=== PATIENT | male | born 1945 | race Caucasian/White ===

== ENCOUNTER 2018-06-29 16:13 | Inpatient (IN) | payer MEDICARE ==
[~2018-06-29] VITALS: Ht 180.3 cm; Wt 85.4 kg
[2018-06-29 16:35] LABS: BASOPHILS % (AUTO) 0.9 % (0.0-5.0); EOSINOPHILS % (AUTO) 1.8 % (0.0-8.0); LYMPHOCYTES % (AUTO) 22.6 % (21.0-51.0); MEAN CORPUSCULAR HEMOGLOBIN 34.2 pg (27.0-33.0); MEAN CORPUSCULAR HGB CONC 34.4 g/dL (32.0-36.0); MEAN CORPUSCULAR VOLUME 99.3 fL (79-99); MONOCYTES % (AUTO) 10.7 % (3.0-13.0); PLATELET COUNT (AUTO) 157 K/uL (130-400); RED BLOOD CELL COUNT(AUTO) 3.92 MIL/uL (4.50-6.20); RED CELL DISTRIBUTION WIDTH 14.6 % (11.0-15.5); WHITE BLOOD COUNT (AUTO) 6.3 K/uL (4.8-10.8)
[2018-06-29 16:43] LABS: CREATININE 1.4 mg/dL (0.5-1.5); POTASSIUM 4.2 mmol/L (3.5-5.1)
[2018-06-29 16:44] LABS: INR 1.84 (0.85-1.15); PARTIAL THROMBOPLASTIN TIME 35.8 SEC (26.3-35.5); PROTHROMBIN TIME 19.1 SEC (9.6-11.6)
[2018-06-29 16:58] LABS: ALBUMIN 3.7 g/dL (3.5-5.0); BILIRUBIN,TOTAL 0.5 mg/dL (0.2-1.0)
[2018-06-29] MEDS ORDERED: NITROGLYCERIN 1GM/1 INCH PACKET TD ONE (16:59)
[2018-06-29] MEDS ORDERED: ASPIRIN 325 MG TABLET ONE (17:19)
[2018-06-29] MEDS ORDERED: DIPHENHYDRAMINE HCL 25 MG CAPSULE ONE (20:20)
[2018-06-29] MEDS ORDERED: FAMOTIDINE 20MG TAB 20 MG TAB PO SCH (21:00)
[2018-06-29] MEDS ORDERED: ACETAMINOPHEN 325 MG TAB PO PRN (21:00)
[2018-06-29] MEDS ORDERED: ONDANSETRON HCL 4 MG/2 ML VIAL IV PRN (21:00)
[2018-06-29 22:55] VITALS: BP 121/69
[2018-06-30 00:39] LABS: CREATINE KINASE, TOTAL 391 U/L (21-232); MYOGLOBIN 256 ng/mL (10-92); TROPONIN I < 0.04 ng/mL (0.00-0.06)
[2018-06-30] MEDS ORDERED: TRAM50TA4 PO (01:50)
[2018-06-30] MEDS ORDERED: LISI-613 PO (01:50)
[2018-06-30] MEDS ORDERED: TAMS0.4C32 PO (01:50)
[2018-06-30] MEDS ORDERED: FINA5TAB41 PO (01:50)
[2018-06-30] MEDS ORDERED: WARF3TAB59 PO (01:50)
[2018-06-30] MEDS ORDERED: FERR1TAB22 PO (01:50)
[2018-06-30] MEDS ORDERED: ASPI-555 PO (01:50)
[2018-06-30] MEDS ORDERED: METO25TA6 PO (01:50)
[2018-06-30] MEDS ORDERED: ROSU10TA27 PO (01:50)
[2018-06-30] MEDS ORDERED: LORA1TAB3 PO (01:50)
[2018-06-30] MEDS ORDERED: SENN-107 PO (01:50)
[2018-06-30] MEDS ORDERED: MULT10VI5 IV (01:50)
[2018-06-30] MEDS ORDERED: WARF6TAB49 PO (01:50)
[2018-06-30] MEDS ORDERED: POLY17PO4 PO (01:50)
[2018-06-30] MEDS ORDERED: OMEP20TA25 PO (01:50)
[2018-06-30] MEDS ORDERED: TETR15DR98 OP (01:50)
[2018-06-30 04:00] VITALS: BP 97/62
[2018-06-30 04:22] LABS: BASOPHILS % (AUTO) 0.6 % (0.0-5.0); EOSINOPHILS % (AUTO) 3.6 % (0.0-8.0); HEMATOCRIT 34.4 % (42-54); LYMPHOCYTES % (AUTO) 32.9 % (21.0-51.0); MEAN CORPUSCULAR HGB CONC 33.4 g/dL (32.0-36.0); MEAN CORPUSCULAR VOLUME 98.9 fL (79-99); MONOCYTES % (AUTO) 14.7 % (3.0-13.0); NEUTROPHILS % (AUTO) 48.2 % (40.0-77.0); PLATELET COUNT (AUTO) 101 K/uL (130-400); RED BLOOD CELL COUNT(AUTO) 3.48 MIL/uL (4.50-6.20); RED CELL DISTRIBUTION WIDTH 14.2 % (11.0-15.5); WHITE BLOOD COUNT (AUTO) 4.2 K/uL (4.8-10.8)
[2018-06-30 04:39] LABS: ALBUMIN 3.2 g/dL (3.5-5.0); BILIRUBIN,TOTAL 0.5 mg/dL (0.2-1.0); CREATININE 1.3 mg/dL (0.5-1.5); POTASSIUM 4.5 mmol/L (3.5-5.1); TOTAL PROTEIN, SERUM 6.2 g/dL (6.0-8.3)
[2018-06-30 08:52] VITALS: BP 116/62
[2018-06-30] MEDS ORDERED: ENOXAPARIN SODIUM 30 MG/0.3 ML SQ SCH (09:00)
[2018-06-30] MEDS ORDERED: NITROGLYCERIN 0.4 MG SL TAB SL PRN (10:00)
[2018-06-30 11:45] VITALS: BP 129/76
[2018-06-30] MEDS ORDERED: REGADENOSON 0.4 MG/5 ML PF SYG IVP SCH (12:15)
[2018-06-30 16:54] VITALS: BP 140/83
[2018-06-30] MEDS ORDERED: LORAZEPAM 1 MG TABLET PO SCH ×2 (18:00→18:15)
[2018-06-30] MEDS ORDERED: DIPHENHYDRAMINE HCL 25 MG CAPSULE PO PRN (18:00)
[2018-06-30] MEDS ORDERED: ENOXAPARIN SODIUM 80 MG/0.8 ML SQ SCH (21:00)
[2018-06-30] MEDS ORDERED: METOPROLOL TARTRATE 25 MG TAB PO SCH (21:00)
[2018-06-30] MEDS ORDERED: ENOXAPARIN SODIUM 1 MG/KG SQ SCH (21:00)
[2018-07-01] MEDS ORDERED: ATORVASTATIN CALCIUM 20 MG TABLET PO SCH (09:00)
[2018-07-01] MEDS ORDERED: LISINOPRIL 20 MG TABLET PO SCH (09:00)
[2018-07-01] MEDS ORDERED: ASPIRIN 81MG TAB.CHEW PO SCH (09:00)
== END 2018-06-30 19:30 | disposition home or self-care (01) | DRG 303 ==
LOC: EDH 16:13 → EDHIP 21:05 → 4CH 23:02
PROVIDERS: ADMIT Internal Medicine; ATTEND Internal Medicine
DX: I25.110 Atherosclerotic heart disease of native coronary artery with unstable angina pectoris (principal); E03.9 Hypothyroidism, unspecified; E78.5 Hyperlipidemia, unspecified; F41.9 Anxiety disorder, unspecified; I11.9 Hypertensive heart disease without heart failure; I48.0 Paroxysmal atrial fibrillation; K21.9 Gastro-esophageal reflux disease without esophagitis; N40.0 Benign prostatic hyperplasia without lower urinary tract symptoms; Z79.01 Long term (current) use of anticoagulants; Z87.891 Personal history of nicotine dependence; Z95.5 Presence of coronary angioplasty implant and graft; Z82.3 Family history of stroke
CPT/HCPCS: 36415; 71045; 78452; 80053; 82550; 83874; 84484; 85025; 85610; 85730; 93005; 93017; 93306; 96374; 99291; A9500; G0378; J2785; Q0163